=== PATIENT | female | born 1955 | race African-American/Black ===

== ENCOUNTER → 2019-09-21 | Outpatient (CLI) | payer BC, OTHER ==
[~2019-09-21] MED LIST: ADULT LOW DOSE81 MG PO; ALLOPURINOL 10100 M1 PO; COREG PO; CRESTOR10 MG PO; DIOVAN320 MG PO; FERREX-150 PLU150 MG PO; FOLIC ACID1 MG PO; HUMALOG MI100 UNIT/6 SQ; HYDRALAZINE 5050 MG PO; IMURAN 50MG TAB50 M1 PO; INSULIN NPL; KLOR-CON 1010 MEQ PO; LASIX 40 MG TAB40 M1 PO; LEVOTHYROXINE0.05 MG PO; LISPRO; METHOTREXATE 22.5 MG PO; MULTIPLE VITAM1 EAC3 PO; PREDNISONE 10 M10 M1 PO; PRILOSEC 10MG C10 M1 PO; PROTONIX40 M2 PO; SULFASALAZINE500 M4 PO; TOPROL XL100 MG PO; VICODIN 5-5001 EACH PO; VITAMIN B 6 PO; ZAROXOLYN 2.5M2.5 M1 PO; ZOFRAN ODT4 MG PO
--- NOTE | 2019-09-21 14:00 | 2DMMODE ---
[place] [address] 2 D/M-MODE ECHOCARDIOGRAM Name: ROSELIA KIMBALL Room: [facility]#: [id number] Admission: 09/21/19 Attend Phys: Hien Sahu, Discharge: Date of : 55 Date of Service: 09/21/19 1359 Report #: [id number] THIS REPORT FOR: //name// APPROVED REPORT Study performed: 09/21/2019 13:04:44 EXAM: Comprehensive 2D, Doppler, and color-flow Echocardiogram Patient Location: Out-Patient BSA: 2.67 HR: 68 bpm BP: 192/80 mmHg Other Information Study Quality: Good Indications Congestive Heart Failure 2D Dimensions IVSd: 11.85 (7-11mm) LVOT Diam: 20.42 (18-24mm) LVDd: 49.05 mm PWd: 11.60 (7-11mm) Ascending Ao: 28.43 (22-36mm) LVDs: 28.71 (25-40mm) Aortic Root: 28.94 mm Volumes Left Atrial Volume (Systole) LA ESV Index: 25.70 mL/m2 Aortic Valve AoV Peak Marin.: 2.07 m/s AO Peak Gr.: 17.13 mmHg LVOT Max P.52 mmHg AO Mean Gr.: 9.04 mmHg LVOT Mean P.51 mmHg LVOT Max V: 1.37 m/s AO V2 VTI: 48.22 cm LVOT Mean V: 0.86 m/s KEI (VTI): 2.20 cm2 LVOT V1 VTI: 32.42 cm Mitral Valve E/A Ratio: 1.24 MV Decel. Time: 198.91 ms MV E Max Marin.: 1.21 m/s MV PHT: 57.68 ms MVA (PHT): 3.81 cm2 [place] [address] 2 D/M-MODE ECHOCARDIOGRAM Name: ROSELIA KIMBALL Room: [facility]#: [id number] Admission: 09/21/19 Attend Phys: Hien Sahu, Discharge: Date of : 55 Date of Service: 09/21/19 1359 Report #: [id number] TDI E/Lateral E': 11.00 E/Medial E': 10.08 Medial E' Marin.: 0.12 m/s Lateral E' Marin.: 0.11 m/s Pulmonary Valve PV Peak Marin.: 1.52 m/s PV Peak Gr.: 9.30 mmHg Tricuspid Valve RAP Estimate: 10.00 mmHg TR Peak Gr.: 43.92 mmHg RVSP: 53.92 mmHg PA Pressure: 53.92 mmHg Left Ventricle The left ventricle is normal size. There is normal LV segmental wall motion. There is normal left ventricular wall thickness. Left ventricular systolic function is normal. The left ventricular ejection fraction is within the normal range. LVEF is 55%. The left ventricular diastolic function is normal. Right Ventricle The right ventricle is normal size. The right ventricular systolic function is normal. Atria The left atrium size is normal. The right atrium size is normal. Aortic Valve Mild aortic valve sclerosis. No aortic regurgitation is present. There is no aortic valvular stenosis. Mitral Valve The mitral valve is normal in structure. There is no mitral valve regurgitation noted. No evidence of mitral valve stenosis. Tricuspid Valve The tricuspid valve is normal in structure. Moderate tricuspid regurgitation. Moderate pulmonary hypertension. Pulmonic Valve The pulmonary valve is normal in structure. There is no pulmonic valvular regurgitation. [place] [address] 2 D/M-MODE ECHOCARDIOGRAM Name: ROSELIA KIMBALL Room: [facility]#: [id number] Admission: 09/21/19 Attend Phys: Hien Sahu, Discharge: Date of : 55 Date of Service: 09/21/19 1359 Report #: [id number] The aortic root is normal in size. IVC is dilated and collapses >50% with inspiration. Pericardium Mild-Moderate circumferential pericardial effusion without evidence for tamponade <Conclusion> The left ventricle is normal size. There is normal left ventricular wall thickness. Left ventricular systolic function is normal. The left ventricular ejection fraction is within the normal range. LVEF is 55%. The left ventricular diastolic function is normal. The right ventricle is normal size. The left atrium size is normal. Mild aortic valve sclerosis. No aortic regurgitation is present. There is no aortic valvular stenosis. The mitral valve is normal in structure. The tricuspid valve is normal in structure. Moderate tricuspid regurgitation. Moderate pulmonary hypertension. IVC is dilated and collapses >50% with inspiration. Mild-Moderate circumferential pericardial effusion without evidence for tamponade There is normal LV segmental wall motion. <ELECTRONICALLY SIGNED> By: Curtis Ordaz MD, FACC 09/21/19 1359 1359 1359 Curtis Ordaz MD, FACC /INF
== END ==
LOC: M.CRD 12:55
DX: I08.2 Rheumatic disorders of both aortic and tricuspid valves (principal); I13.0 Hypertensive heart and chronic kidney disease with heart failure and stage 1 through stage 4 chronic kidney disease, or unspecified chronic kidney disease; I50.32 Chronic diastolic (congestive) heart failure; E11.22 Type 2 diabetes mellitus with diabetic chronic kidney disease; I27.20 Pulmonary hypertension, unspecified

== ENCOUNTER 2019-10-11 18:06 | Inpatient (IN) | payer BC, OTHER ==
[~2019-10-11] VITALS: Ht 167.6 cm; Wt 175.1 kg
--- NOTE | ~2019-10-11 | EKG ---
[place] [address] ELECTROCARDIOGRAM REPORT Name: ROSELIA KIMBALL Room: [address] ADM IN .R.#: [id number] Admission: 10/11/19 Attend Phys: Hunter Dahl, Discharge: Date of : 55 Date of Service: 10/28/19 0954 Report #: [id number] THIS REPORT FOR: cc: Gabe Arellano MD, Matthew S. MD Epiphany, Epiphany MD ~ THIS REPORT FOR: //name// [facility] Test Date: 2019-10-28 Test Time: 09:54:48 Pat Name: ROSELIA KIMBALL Department: Room: [address] Gender: F Slate Worker: EMEKA : 1955 Requested By: Humberto Dumont Order Number: [id number] Reading MD: Measurements Intervals [place] Rate: 63 P: 27 DC: 154 QRS: -47 QRSD: 128 T: 17 QT: 579 QTc: 593 Interpretive Statements Sinus rhythm Nonspecific IVCD with LAD Borderline T abnormalities, diffuse leads Compared to ECG 10/26/2019 09:47:39 Atrial flutter no longer present Myocardial infarct finding no longer present Prolonged QT interval no longer present T-wave abnormality still present [email or web address] By: 3 3 Epiphany EpiphMD adalberto /TRESA
--- NOTE | ~2019-10-11 | EKG ---
[place] [address] ELECTROCARDIOGRAM REPORT Name: ROSELIA KIMBALL Room: [address] ADM IN M.R.#: [id number] Admission: 10/11/19 Attend Phys: Hunter Dahl, Discharge: Date of : 55 Date of Service: 10/26/19 0947 Report #: [id number] THIS REPORT FOR: cc: Gabe Arellano MD, Matthew S. MD Epiphany, Epiphany MD ~ THIS REPORT FOR: //name// [facility] Test Date: 2019-10-26 Test Time: 09:47:39 Pat Name: ROSELIA KIMBALL Department: Room: [address] Gender: F Web Development Manager: EMEKA : 1955 Requested By: Humberto Dumont Order Number: [id number] Reading MD: Measurements Intervals [place] Rate: 126 P: 64 [place]: 185 QRS: -37 QRSD: 112 T: 118 QT: 419 QTc: 607 Interpretive Statements Sinus tachycardia Borderline IVCD with LAD Low voltage, precordial leads Consider anterior infarct Nonspecific T abnormalities, lateral leads Prolonged QT interval Compared to ECG 10/20/2019 08:26:24 Low QRS voltage now present T-wave abnormality now present Prolonged QT interval now present Atrial flutter no longer present Right bundle-branch block no longer present Myocardial infarct finding still present [email or web address] By: 6 6 Rowdy Reno MD /EPI
[~2019-10-11 18:06] MED LIST changes: +CARVEDILOL12.5 MG PO; -COREG PO; -LEVOTHYROXINE0.05 MG PO; +METOLAZONE 2.52.5 MG PO; -MULTIPLE VITAM1 EAC3 PO; +MULTIPLE VITAM1 EACH PO; +OMEPRAZOLE10 MG PO; -PRILOSEC 10MG C10 M1 PO; +SYNTHROID50 MCG PO; -ZAROXOLYN 2.5M2.5 M1 PO
[2019-10-11 18:10] VITALS: BP 167/55
[2019-10-11 19:28] LABS: HEMATOCRIT 31.6 % (37.0-47.0); HEMOGLOBIN 10.1 gm/dL (12.0-15.0); MCH 27.9 pg (26.0-34.0); MPV 9.3 fl. (7.2-11.1); NUCLEATED RBCS 0 /100WBC; PLATELET COUNT* 286 thou/uL (150-400); RBC 3.63 mil/uL (4.20-5.00); RDW-CV 17.9 % (10.5-14.5); WBC 14.4 thou/uL (4.0-11.0)
[2019-10-11 19:39] LABS: BE -3.9 mmol/L (-2 to +3); PCO2 46.9 mmHg (35.0-45.0)
[2019-10-11 19:41] LABS: PO2 177.1 mmHg (75.0-100.0)
[2019-10-11 19:45] LABS: ABSOLUTE LYMPHOCYTES 0.7 thou/uL (0.8-5.3); ABSOLUTE MONOCYTES 0.7 thou/uL (0.0-1.2); PLATELET ESTIMATE ADEQUATE
[2019-10-11 19:50] VITALS: BP 133/54
[2019-10-11 19:53] LABS: CALCIUM 8.9 mg/dL (8.5-10.1); CREATININE 4.7 mg/dL (0.6-1.3); POTASSIUM 5.1 mmol/L (3.5-5.1)
[2019-10-11 20:04] LABS: ALBUMIN 3.3 g/dL (3.4-5.0); TOTAL BILIRUBIN 0.4 mg/dL (<0.1-1.0); TOTAL PROTEIN 8.3 g/dL (6.4-8.2)
[2019-10-11 20:17] VITALS: BP 144/84
[2019-10-11 20:57] LABS: APTT 23.7 Seconds (25.0-31.3); INR 1.1; PROTIME 11.5 Seconds (9.20-11.50)
[2019-10-11] MEDS ORDERED: LIPITOR 20 MG T20 M1 PO (21:35)
[2019-10-11] MEDS ORDERED: ASA81BEC PO (21:36)
[2019-10-11] MEDS ORDERED: CALCITRIOL0.25 MCG PO (21:39)
[2019-10-11] MEDS ORDERED: KLOR-CON 1010 MEQ PO (21:41)
[2019-10-11] MEDS ORDERED: FEBUXOSTAT40 MG PO (21:42)
[2019-10-11] MEDS ORDERED: HYDRALAZINE 5050 MG PO (21:43)
[2019-10-11] MEDS ORDERED: ADALAT CC60 MG PO (21:45)
[2019-10-11 22:01] VITALS: BP 144/69
[2019-10-11 23:00] VITALS: BP 163/83
[2019-10-12] VITALS (36 sets, daily range): BP systolic 117–158; BP diastolic 41–125
[2019-10-12 02:49] LABS: HEMATOCRIT 30.3 % (37.0-47.0); HEMOGLOBIN 9.5 gm/dL (12.0-15.0); MCH 27.4 pg (26.0-34.0); MCHC 31.3 g/dL (28.0-37.0); MCV 87.7 fL (80.0-100.0); RBC 3.45 mil/uL (4.20-5.00); RDW-CV 17.3 % (10.5-14.5); WBC 11.8 thou/uL (4.0-11.0)
[2019-10-12 03:04] LABS: CALCIUM 9.5 mg/dL (8.5-10.1); CREATININE 4.8 mg/dL (0.6-1.3); MAGNESIUM 2.1 mg/dL (1.8-2.4); PHOSPHORUS* 5.8 mg/dL (2.5-4.9); POTASSIUM 5.3 mmol/L (3.5-5.1)
--- NOTE | 2019-10-12 10:40 | EKG ---
[place] [address] ELECTROCARDIOGRAM REPORT Name: ROSELIA KIMBALL Room: [address] ADM IN M.R.#: [id number] Admission: 10/11/19 Attend Phys: Hunter Dahl MD Discharge: Date of : 55 Report #: [id number] THIS REPORT FOR: //name// [facility] ED Test Date: 2019-10-11 Test Time: 18:11:47 Pat Name: ROSELIA KIMBALL Department: Room: [facility] Gender: F Sales Order Coordinator: : 1955 Requested By: José Guidry Order Number: [id number] MD: Humberto Dumont Measurements Intervals [place] Rate: 68 P: 40 SC: 129 QRS: -24 QRSD: 111 T: 50 QT: 368 QTc: 392 Interpretive Statements Sinus rhythm t wave abnormality Borderline left axis deviation Abnormal R-wave progression, late transition Compared to ECG 03/08/2010 01:24:02 no change Electronically Signed On 10-12-2019 10:40:14 LOAN CLERK by Humberto Dumont [email or web address] <ELECTRONICALLY SIGNED> By: Humberto Dumont MD, [facility] 10/12/19 1040 181 10 Humberto Dumont MD, [facility] /EPI
--- NOTE | 2019-10-12 15:40 | 2DMMODE ---
[address] [place] [address] 2 D/M-MODE ECHOCARDIOGRAM Name: REHANAROSELIA NATALYA Room: [facility] ADM IN R#: [id number] Admission: 10/11/19 Attend Phys: Hunter Dahl, Discharge: Date of : 55 Date of Service: 10/12/19 1539 Report #: [id number] THIS REPORT FOR: //name// APPROVED REPORT Study performed: 10/12/2019 14:28:11 EXAM: Limited 2D Echocardiogram Patient Location: In-Patient Room #: [facility] Status: routine BSA: 2.60 HR: 67 bpm BP: 143/67 mmHg Rhythm: NSR Other Information Study Quality: Good Indications Pericardial Effusion Left Ventricle The left ventricle is normal size. There is normal left ventricular wall thickness. The left ventricular systolic function is normal. The left ventricular ejection fraction is within the normal range. LVEF is 55-60%. Right Ventricle The right ventricle is normal size. The right ventricular systolic function is normal. Atria The left atrium size is normal. The right atrium size is normal. Aortic Valve Mild aortic valve sclerosis. Mitral Valve The mitral valve is normal in structure. Tricuspid Valve The tricuspid valve is normal in structure. Pulmonic Valve [facility] [place] [address] 2 D/M-MODE ECHOCARDIOGRAM Name: ROSELIA KIMBALL Room: [address] IN M.R.#: [id number] Admission: 10/11/19 Attend Phys: Hunter Dahl, Discharge: Date of : 55 Date of Service: 10/12/199 Report #: [id number] The pulmonary valve is normal in structure. Great Vessels The aortic root is normal in size. IVC is normal in size and collapses >50% with inspiration. Pericardium Moderate circumferential pericardial effusion. <Conclusion> LVEF is 55-60%. Moderate circumferential pericardial effusion. <ELECTRONICALLY SIGNED> By: Humberto Dumont MD, FACC 10/12/19 1539 1539 38 Humberto Dumont MD, FACC /INF
[2019-10-12 16:01] LABS: BE -5.9 mmol/L (-2 to +3); PCO2 40.4 mmHg (35.0-45.0); PO2 81.7 mmHg (75.0-100.0); pH 7.311 (7.340-7.450)
[2019-10-12 17:29] LABS: URINE BILIRUBIN 1+ (Negative); URINE BLOOD 3+ (Negative); URINE CLARITY CLEAR; URINE GLUCOSE-RANDOM NEGATIVE (Negative); URINE KETONES NEGATIVE (Negative); URINE LEUKOCYTES 2+ (Negative); URINE NITRITE NEGATIVE (Negative); URINE PROTEIN 2+ (Negative); URINE SPECIFIC GRAVITY 1.025 (1.005-1.030); URINE UROBILINOGEN 0.2 E.U./dl (0.2-1.0)
[2019-10-12 17:30] LABS: ICTOTEST (BILI CONFIRMATORY) Negative (Negative); URINE COLOR DARK YELLOW
[2019-10-12 17:31] LABS: CASTS None Seen /LPF (None Seen); SQUAMOUS >10 Many /LPF (0-3); URINE RBC >20 Many /HPF (0-2); URINE WBC >25 Many /HPF (0-5)
[2019-10-12 17:32] LABS: AMORPHOUS URATES Few /LPF (None Seen)
[2019-10-13] VITALS (22 sets, daily range): BP systolic 90–158; BP diastolic 51–86
[2019-10-13 04:29] LABS: ALBUMIN 2.9 g/dL (3.4-5.0); CALCIUM 8.9 mg/dL (8.5-10.1); CREATININE 5.1 mg/dL (0.6-1.3); PHOSPHORUS* 5.5 mg/dL (2.5-4.9); POTASSIUM 5.5 mmol/L (3.5-5.1)
--- NOTE | 2019-10-13 08:42 | CON ---
[address] [address] CONSULTATION Name: ROSELIA KIMBALL Room: [address] IN .R.#: [id number] Admission: 10/11/19 Attend Phys: Hunter Dahl MD Discharge: Date of : 55 Report #: [id number] THIS REPORT FOR: //name// CC: Hunter Arellano DATE OF SERVICE: 10/12/2019 CARDIOLOGY CONSULTATION HISTORY OF PRESENT ILLNESS: The patient is a 64-year-old white female who I was asked to see in the hospital today after she complained of being short of breath. The patient has been followed by my partner, Dr. Stone. She is morbidly obese, being 5 feet 6 inches and weighing 360 pounds. She does note she used to weigh over 400 pounds. She is not very active at this time. She called the ambulance yesterday because she was short of breath, felt diaphoretic, was coughing. She has had some edema. She was brought to the hospital by ambulance. She did note some chest discomfort when she took deep breath. She has had no leg pain. Denied palpitation or syncope. PAST MEDICAL HISTORY: Significant for hysterectomy, hypertension and diabetes. MEDICATIONS: On admission consisted of carvedilol, omeprazole, Crestor, Imuran, Zaroxolyn, insulin, allopurinol, Lasix. ALLERGIES: SHE HAS AN ALLERGY TO MORPHINE. FAMILY HISTORY: Her father had COPD. SOCIAL HISTORY: She is . She and her live here in [place]. She quit smoking years ago. No alcohol abuse. REVIEW OF SYSTEMS: She has had no history of stroke. She does not snore at night. No history of liver disease. She has chronic kidney disease and she has been followed by spark plug assembler. No cancer. No chronic skin condition. No psychiatric illness. PHYSICAL EXAMINATION: GENERAL: Revealed a middle-aged female lying in bed. She appeared in no acute distress. VITAL SIGNS: She had a blood pressure 140/70, pulse 60. She is afebrile. HEENT: She was anicteric. Conjunctivae pink. Mucous membranes are moist. NECK: Veins cannot be assessed due to obesity. CHEST: Clear to auscultation. CARDIOVASCULAR: Regular rate and rhythm without murmur or rub. ABDOMEN: Obese, [place] [address] CONSULTATION Name: ROSELIA KIMBALL Room: [address]#: [id number] Admission: 10/11/19 Attend Phys: Hunter Dahl MD Discharge: Date of : 55 Report #: [id number] EXTREMITIES: Had trace edema. SKIN: Cool and dry. NEUROLOGIC: Nonfocal. RADIOLOGICAL DATA: Her ECG on admission. She appeared to be in a sinus rhythm, no significant ST or T-wave changes were noted. Her workup, she had a portable chest x-ray in the Emergency Room last night that showed cardiomegaly and large cardiac silhouette suggesting effusion. Pulmonary vasculature was normal. Some atelectasis. She had a venous duplex scan of her legs that showed no evidence of DVT. LABORATORY WORK: Sodium 135, BUN 65, creatinine is 4.8, potassium 5.3, glucose 166. Liver function studies were normal. Albumin 3.3. Troponin 0.06. BNP 1969. Her white blood cell count 11.8, hemoglobin 9.5, it was actually 7.7 back in 2009. IMPRESSION AND RECOMMENDATIONS: 1. Shortness of breath. Reason unclear. The patient did have an echocardiogram done in August last month that showed a moderate sized pericardial effusion with an ejection fraction of 55%. I would recommend a repeat echocardiogram. 2. Morbid obesity. 3. Chronic kidney disease. The patient might require dialysis. 4. Anemia. No history of bleeding. <ELECTRONICALLY SIGNED> By: Humberto Dumont MD, FACC 10/13/19 0842 1441 [email or web address] Dumont MD, FACC /nt
[2019-10-13 09:20] LABS: BE -2.8 mmol/L (-2 to +3); PCO2 44.9 mmHg (35.0-45.0)
[2019-10-14] VITALS (16 sets, daily range): BP systolic 110–145; BP diastolic 38–87
[2019-10-14 05:52] LABS: % SATURATION 17 % (20-39); IRON 31 ug/dL (50-175)
[2019-10-14 05:53] LABS: CALCIUM 8.3 mg/dL (8.5-10.1); CREATININE 5.3 mg/dL (0.6-1.3); PHOSPHORUS* 5.5 mg/dL (2.5-4.9)
[2019-10-14 06:12] LABS: POTASSIUM 5.5 mmol/L (3.5-5.1)
[2019-10-14 06:43] LABS: CALCIUM 8.9 mg/dL (8.5-10.1); CREATININE 5.4 mg/dL (0.6-1.3); PHOSPHORUS* 5.4 mg/dL (2.5-4.9)
[2019-10-15 00:19] VITALS: BP 139/85
[2019-10-15 04:15] VITALS: BP 136/83
[2019-10-15 05:12] LABS: CALCIUM 8.8 mg/dL (8.5-10.1); CREATININE 4.5 mg/dL (0.6-1.3); POTASSIUM 4.6 mmol/L (3.5-5.1)
[2019-10-15 12:00] VITALS: BP 115/74
[2019-10-15 16:00] VITALS: BP 119/84
[2019-10-15 20:00] VITALS: BP 131/79
[2019-10-15 23:44] VITALS: BP 125/84
[2019-10-16] VITALS (20 sets, daily range): BP systolic 101–138; BP diastolic 63–85
[2019-10-16 02:10] LABS: HEPATITIS B SURFACE AG Negative (Negative)
[2019-10-16 05:25] LABS: CALCIUM 8.5 mg/dL (8.5-10.1); CREATININE 3.9 mg/dL (0.6-1.3)
--- NOTE | 2019-10-16 14:36 | EKG ---
[place] [address] ELECTROCARDIOGRAM REPORT Name: ROSELIA KIMBALL Room: [address] ADM IN .R.#: [id number] Admission: 10/11/19 Attend Phys: Hunter Dahl MD Discharge: Date of : 55 Report #: [id number] THIS REPORT FOR: //name// [facility] Test Date: 2019-10-16 Test Time: 12:13:44 Pat Name: ROSELIA KIMBALL Department: Room: [facility] Gender: F Forklift Operator: : 1955 Requested By: Jarrett John Order Number: [id number] Reading MD: Humberto Dumont Measurements Intervals [place] Rate: 129 P: 253 [place]: 117 QRS: -24 QRSD: 120 T: 97 QT: 348 QTc: 510 Interpretive Statements Sinus or ectopic atrial tachycardia nonspecific Intraventricular conduction defect nonspecific st changes noted Compared to ECG 10/11/2019 18:11:47 Sinus rhythm no longer present Electronically Signed On 10-16-2019 14:35:38 CHEMI[employer] by Humberto Dumont [email or web address] <ELECTRONICALLY SIGNED> By: Humberto Dumont MD, [facility] 10/16/19 3712 1213 1213 Humberto Dumont MD, [facility] /EPI
[2019-10-16 14:41] LABS: BE -6.7 mmol/L (-2 to +3); PCO2 43.1 mmHg (35.0-45.0)
[2019-10-16 14:43] LABS: PO2 217.6 mmHg (75.0-100.0); pH 7.278 (7.340-7.450)
[2019-10-16 15:26] LABS: CALCIUM 8.1 mg/dL (8.5-10.1); CREATININE 3.1 mg/dL (0.6-1.3); MAGNESIUM 1.9 mg/dL (1.8-2.4); POTASSIUM 4.7 mmol/L (3.5-5.1)
--- NOTE | 2019-10-16 15:56 | EKG ---
[place] [address] ELECTROCARDIOGRAM REPORT Name: ROSELIA KIMBALL Room: [address] ADM IN M.R.#: [id number] Admission: 10/11/19 Attend Phys: Hunter Dahl MD Discharge: Date of : 55 Report #: [id number] THIS REPORT FOR: //name// [facility] Test Date: 2019-10-16 Test Time: 14:34:37 Pat Name: ROSELIA KIMBALL Department: Room: [address] Gender: F Auto Parts Delivery Driver: : 1955 Requested By: Janet Haynes Order Number: [id number] Reading MD: Humberto Dumont Measurements Intervals [place] Rate: 134 P: 240 [place]: 103 QRS: -33 QRSD: 118 T: 109 QT: 318 QTc: 475 Interpretive Statements Sinus or ectopic atrial tachycardia Nonspecific intraventricular conduction delay Inferior infarct, old Lateral leads are also involved Compared to ECG 10/16/2019 12:13:44 no change Electronically Signed On 10-16-2019 15:55:35 MANAGER SOUND by Humberto Dumont [email or web address] <ELECTRONICALLY SIGNED> By: Humberto Dumont MD, [facility] 10/16/19 1555 1434 1434 Humberto Dumont MD, [facility] /EPI
[2019-10-16 17:31] LABS: BF RBC 1976472 /mm3; TOTAL CELL COUNT 2595 /mm3
--- NOTE | 2019-10-16 17:42 | 2DMMODE ---
[place] [address] 2 D/M-MODE ECHOCARDIOGRAM Name: ROSELIA KIMBALL NATALYA Room: 002-[facility] IN .R.#: [id number] Admission: 10/11/19 Attend Phys: Hunter Dahl, Discharge: Date of : 55 Date of Service: 10/16/19 1741 Report #: [id number] THIS REPORT FOR: //name// ADDENDUM APPROVED REPORT Study performed: 10/16/2019 15:09:31 EXAM: Limited 2D Echocardiogram Patient Location: In-Patient Room #: 002 Status: routine BSA: 2.60 HR: 133 bpm BP: 91/64 mmHg Other Information Study Quality: Fair Indications Pericardial Effusion Left Ventricle The left ventricle is normal size. There is normal LV segmental wall motion. Mild concentric left ventricular hypertrophy. The left ventricular systolic function is normal. The left ventricular ejection fraction is within the normal range. LVEF is 60-65%. Right Ventricle The right ventricle is normal size. The right ventricular systolic function is normal. Atria The left atrium size is normal. The right atrium size is normal. Aortic Valve Mild aortic valve sclerosis. Mitral Valve The mitral valve is normal in structure. Tricuspid Valve The tricuspid valve is normal in structure. Pulmonic Valve The pulmonary valve is normal in structure. [address] [address] 2 D/M-MODE ECHOCARDIOGRAM Name: ROSELIA KIMBALL Room: [facility] IN M.R.#: [id number] Admission: 10/11/19 Attend Phys: Hunter Dahl, Discharge: Date of : 55 Date of Service: 10/16/191740 Report #: [id number] Great Vessels The aortic root is normal in size. IVC is normal in size. Pericardium large circumferential pericardial effusion. Findings are consistent with pericardial tamponade. <Conclusion> Mild concentric left ventricular hypertrophy. LVEF is 60-65%. Mild aortic valve sclerosis. large circumferential pericardial effusion. Findings are consistent with pericardial tamponade. After percutaneous pericardiocentesis from the apical approach, the size of the pericardial effusion was noted to have decreased. Approximately 700 cc of bloody fluid was removed and sent to the lab for analysis. Time spent in critical care time was from 4:00 pm til 5:30 pm for a total time of 1 hour and 30 minutes. <ELECTRONICALLY SIGNED> By: Humberto Dumont MD, [facility] 10/16/191740 40 40 Humberto Dumont MD, FACC /INF
[2019-10-16 17:56] LABS: BF LYMPHOCYTES 20 %; BF MONOCYTES 17 %; BF POLYS 63 %
[2019-10-16 18:00] LABS: TOTAL VOLUME 450 ml
[2019-10-16 18:01] LABS: CLARITY CLOUDY
[2019-10-16 18:02] LABS: SOURCE CHEST
[2019-10-16 18:48] LABS: HEMATOCRIT 30.9 % (37.0-47.0); HEMOGLOBIN 9.7 gm/dL (12.0-15.0)
[2019-10-16 18:55] LABS: CALCIUM 8.2 mg/dL (8.5-10.1); CREATININE 3.4 mg/dL (0.6-1.3); MAGNESIUM 1.7 mg/dL (1.8-2.4); POTASSIUM 4.4 mmol/L (3.5-5.1)
[2019-10-16 19:53] LABS: SOURCE CHEST
[2019-10-17] VITALS (86 sets, daily range): BP systolic 48–197; BP diastolic 20–93
[2019-10-17 00:56] LABS: ABSOLUTE LYMPHOCYTES 1.2 thou/uL (0.8-5.3); ABSOLUTE MONOCYTES 1.7 thou/uL (0.0-1.2); ABSOLUTE NEUTROPHILS 21.4 thou/uL (1.6-8.1); BASOPHILS 0.1 %; EOSINOPHILS 0.1 %; HEMATOCRIT 28.5 % (37.0-47.0); LYMPHOCYTES 4.9 %; MCH 27.5 pg (26.0-34.0); MCHC 31.5 g/dL (28.0-37.0); MCV 87.3 fL (80.0-100.0); MONOCYTES 6.9 %; MPV 9.2 fl. (7.2-11.1); NUCLEATED RBCS 0 /100WBC; PLATELET COUNT* 234 thou/uL (150-400); RBC 3.26 mil/uL (4.20-5.00); RDW-CV 17.4 % (10.5-14.5); WBC 24.3 thou/uL (4.0-11.0)
[2019-10-17 01:01] LABS: CALCIUM 8.1 mg/dL (8.5-10.1); CREATININE 3.6 mg/dL (0.6-1.3); MAGNESIUM 1.7 mg/dL (1.8-2.4); POTASSIUM 4.6 mmol/L (3.5-5.1)
[2019-10-17 01:26] LABS: BE -2.9 mmol/L (-2 to +3); PO2 92.5 mmHg (75.0-100.0)
[2019-10-17 01:28] LABS: PCO2 50.3 mmHg (35.0-45.0); pH 7.292 (7.340-7.450)
[2019-10-17 10:08] LABS: BE 0.5 mmol/L (-2 to +3); PCO2 45.3 mmHg (35.0-45.0); PO2 78.4 mmHg (75.0-100.0); pH 7.376 (7.340-7.450)
[2019-10-18] VITALS (75 sets, daily range): BP systolic 73–150; BP diastolic 40–95
[2019-10-18 05:32] LABS: ABSOLUTE EOSINOPHILS 0.6 thou/uL (0.0-0.7); ABSOLUTE LYMPHOCYTES 1.7 thou/uL (0.8-5.3); ABSOLUTE MONOCYTES 1.2 thou/uL (0.0-1.2); ABSOLUTE NEUTROPHILS 16.5 thou/uL (1.6-8.1); BASOPHILS 0.1 %; EOSINOPHILS 3.1 %; HEMATOCRIT 26.9 % (37.0-47.0); HEMOGLOBIN 8.7 gm/dL (12.0-15.0); LYMPHOCYTES 8.3 %; MCH 27.3 pg (26.0-34.0); MCHC 32.3 g/dL (28.0-37.0); MCV 84.7 fL (80.0-100.0); MONOCYTES 6.1 %; MPV 9.2 fl. (7.2-11.1); NUCLEATED RBCS 0 /100WBC; PLATELET COUNT* 209 thou/uL (150-400); POLYS 82.4 %; RBC 3.18 mil/uL (4.20-5.00); RDW-CV 17.5 % (10.5-14.5)
[2019-10-18 05:56] LABS: CALCIUM 8.2 mg/dL (8.5-10.1)
[2019-10-18 05:59] LABS: CREATININE 4.6 mg/dL (0.6-1.3)
[2019-10-18 08:38] LABS: BE -1.6 mmol/L (-2 to +3); PCO2 41.5 mmHg (35.0-45.0); PO2 72.6 mmHg (75.0-100.0); pH 7.372 (7.340-7.450)
--- NOTE | 2019-10-18 09:15 | CON ---
[address] [address] CONSULTATION Name: REHANAROSELIASHELLEY RASHEEDISE Room: [address] IN M.R.#: [id number] Admission: 10/11/19 Attend Phys: Hunter Dahl MD Discharge: Date of : 55 Report #: [id number] THIS REPORT FOR: //name// CC: Hunter Dahl Gabe Arellano DATE OF SERVICE: 10/17/2019 INFECTIOUS DISEASE CONSULTATION ATTENDING PHYSICIAN: Hunter Dahl MD REASON FOR EVALUATION: Cardiac effusion, exclude Mycobacterium tuberculosis. HISTORY OF PRESENT ILLNESS: Chart reviewed, patient examined. This is a 64-year-old with underlying COPD, who was admitted on 10/11/2019 with respiratory distress, subsequent failure, did require BiPAP, aggressive resuscitation. She was actually shown to have improvement, it clearly has a combination as well as pulmonary edema. She was found to have acute on chronic renal failure, felt this was likely to be chronic, scheduled to undergo placement of a dialysis graft subsequently that developed a cardiac arrest. She was resuscitated and was found to have evidence of tamponade. She was emergently taken to the Property Maintenance Supervisor, underwent evacuation of roughly 650 mL. Drain remains in place, described as serosanguineous. It is not clear if she did have any fevers or chills. There was a concern about possible MTB. At this point, she is sedated, maintained on the vent. ALLERGIES: LISTED TO MORPHINE. MEDICATIONS: Include fentanyl, pantoprazole, Zosyn, propofol, norepinephrine. PAST MEDICAL HISTORY: As noted above, COPD, history of hypertension, diabetes mellitus, chronic renal insufficiency, previous hysterectomy. SOCIAL HISTORY: Nonsmoker, no ethanol, no illicit drug use. FAMILY HISTORY: Noncontributory. REVIEW OF SYSTEMS: Unobtainable. PHYSICAL EXAMINATION: GENERAL: She is critically ill. She is lying supine, she is intubated. She is obese. VITAL SIGNS: Temperature 97.4, pulse 119, respirations 15, blood pressure 116/80. SKIN: Warm, dry, [place] [address] CONSULTATION Name: REHANAROSELIA Room: [address]#: [id number] Admission: 10/11/19 Attend Phys: Hunter Dahl MD Discharge: Date of : 55 Report #: [id number] HEENT: Endotracheal tube in place. NECK: Appears to be supple. LUNGS: Few scattered coarse breath sounds. HEART: Regular, tachycardic. ABDOMEN: Has a drainage catheter, left upper quadrant. It is generally soft. There are no peritoneal signs. GENITOURINARY: Deferred. RECTAL: Deferred. LABORATORY DATA: Blood cultures sterile thus far. Recent ABG: pH 7.292, pCO2 of 50.3, pO2 of 92.5, FiO2 of 90%. Electrolytes: Sodium 134, potassium 4.6, chloride 98, bicarbonate is 26, anion gap of 10, BUN and creatinine of 46 and 3.6. CBC: White count of 24.3, hemoglobin and hematocrit 9.0 and 28.5, platelets of 234. Chest x-ray, left basilar opacification compatible with atelectasis and consolidation. ASSESSMENT AND PLAN: Cardiac effusion, complicated by tamponade. The patient has extensive medical history. At this point, I do not appreciate any clear evidence or suggestive confounding information that would suggest Mycobacterium tuberculosis. We will send off TB spot. Continue typical antimicrobial therapy. At this point, she is at risk for additional complications as well ____ broad-spectrum therapy. <ELECTRONICALLY SIGNED> By: Frank Benitez MD 10/18/19 0915 0940 [id number] Benitez MD /nt
--- NOTE | 2019-10-18 16:21 | 2DMMODE ---
[facility] [address] [place] [address] 2 D/M-MODE ECHOCARDIOGRAM Name: REHANAROSELIA NATALYA Room: 002-P ADM IN .R#: [id number] Admission: 10/11/19 Attend Phys: Hunter Dahl, Discharge: Date of : 55 Date of Service: 10/18/19 1620 Report #: [id number] THIS REPORT FOR: //name// APPROVED REPORT Study performed: 10/17/2019 08:23:57 EXAM: Limited 2D Echocardiogram Patient Location: In-Patient Room #: [facility] Status: routine BSA: 2.60 HR: 126 bpm BP: 86/59 mmHg Other Information Study Quality: Adequate Indications Pericardial Effusion Left Ventricle The left ventricle is normal size. There is normal LV segmental wall motion. Mild concentric left ventricular hypertrophy. The left ventricular systolic function is normal. LVEF is 60-65%. Right Ventricle The right ventricle is normal size. The right ventricular systolic function is normal. Atria The left atrium size is normal. The right atrium size is normal. Aortic Valve Mild aortic valve sclerosis. Mitral Valve The mitral valve is normal in structure. Tricuspid Valve The tricuspid valve is normal in structure. Pulmonic Valve The pulmonary valve is normal in structure. [address] [place] [address] 2 D/M-MODE ECHOCARDIOGRAM Name: ROSELIA KIMBALL Room: [address] IN M.R.#: [id number] Admission: 10/11/19 Attend Phys: Hunter Dahl, Discharge: Date of : 55 Date of Service: 10/18/191619 Report #: [id number] Great Vessels The aortic root is normal in size. Pericardium Trace pericardial effusion. No echo indications of pericardial tamponade. <Conclusion> The left ventricle is normal size. Mild concentric left ventricular hypertrophy. The left ventricular systolic function is normal. LVEF is 60-65%. Mild aortic valve sclerosis. Trace pericardial effusion. No echo indications of pericardial tamponade. <ELECTRONICALLY SIGNED> By: William Stone MD, FACC 10/18/191619 19 19 William Stone MD, FACC /INF
[2019-10-19] VITALS (62 sets, daily range): BP systolic 74–169; BP diastolic 41–80
[2019-10-19 05:48] LABS: ABSOLUTE EOSINOPHILS 0.8 thou/uL (0.0-0.7); ABSOLUTE LYMPHOCYTES 1.6 thou/uL (0.8-5.3); ABSOLUTE MONOCYTES 1.3 thou/uL (0.0-1.2); ABSOLUTE NEUTROPHILS 15.9 thou/uL (1.6-8.1); BASOPHILS 0.1 %; HEMATOCRIT 27.3 % (37.0-47.0); HEMOGLOBIN 8.8 gm/dL (12.0-15.0); LYMPHOCYTES 8.1 %; MCH 27.6 pg (26.0-34.0); MCHC 32.4 g/dL (28.0-37.0); MCV 85.1 fL (80.0-100.0); MONOCYTES 6.8 %; MPV 9.5 fl. (7.2-11.1); NUCLEATED RBCS 0 /100WBC; PLATELET COUNT* 235 thou/uL (150-400); RBC 3.21 mil/uL (4.20-5.00); RDW-CV 17.8 % (10.5-14.5); WBC 19.7 thou/uL (4.0-11.0)
[2019-10-19 06:03] LABS: CALCIUM 8.2 mg/dL (8.5-10.1); CREATININE 5.2 mg/dL (0.6-1.3)
--- NOTE | 2019-10-19 10:10 | EKG ---
[place] [address] ELECTROCARDIOGRAM REPORT Name: ROSELIA KIMBALL Room: [address] ADM IN M.R.#: [id number] Admission: 10/11/19 Attend Phys: Hunter Dahl MD Discharge: Date of : 55 Report #: [id number] THIS REPORT FOR: //name// [facility] Test Date: 2019-10-18 Test Time: 07:39:01 Pat Name: ROSELIA KIMBALL Department: Room: [address] Gender: F Equity Director: LINNETTE : 1955 Requested By: William Stone Order Number: [id number] Hannah MD: Humberto Dumont Measurements Intervals [place] Rate: 126 P: 169 MA: 67 QRS: -58 QRSD: 170 T: 72 QT: 393 QTc: 570 Interpretive Statements Sinus or ectopic atrial tachycardia RBBB and LAFB Compared to ECG 10/16/2019 14:34:37 Left anterior fascicular block now present Right bundle-branch block now present Electronically Signed On 10-19-2019 10:10:12 SUPERVISING NURSE by Humberto Dumont [email or web address] <ELECTRONICALLY SIGNED> By: Humberto Dumont MD, [facility] 10/19/19 1010 0739 0739 Humberto Dumont MD, [facility] /EPI
[2019-10-19 13:08] LABS: BODY FLUID PROTEIN 5.5 g/dL (())
[2019-10-19 14:09] LABS: BODY FLUID PH 7.2 (Not Estab.)
[2019-10-19 15:29] LABS: BODY FLUID LDH ND
[2019-10-20] VITALS (67 sets, daily range): BP systolic 71–174; BP diastolic 40–84
[2019-10-20 05:12] LABS: ABSOLUTE EOSINOPHILS 0.5 thou/uL (0.0-0.7); ABSOLUTE LYMPHOCYTES 1.3 thou/uL (0.8-5.3); ABSOLUTE MONOCYTES 1.1 thou/uL (0.0-1.2); ABSOLUTE NEUTROPHILS 11.6 thou/uL (1.6-8.1); BASOPHILS 0.2 %; EOSINOPHILS 3.1 %; HEMOGLOBIN 8.5 gm/dL (12.0-15.0); LYMPHOCYTES 9.1 %; MCH 28.1 pg (26.0-34.0); MCHC 32.6 g/dL (28.0-37.0); MCV 86.1 fL (80.0-100.0); MONOCYTES 7.6 %; MPV 8.8 fl. (7.2-11.1); NUCLEATED RBCS 0 /100WBC; PLATELET COUNT* 222 thou/uL (150-400); RBC 3.02 mil/uL (4.20-5.00); RDW-CV 17.8 % (10.5-14.5); WBC 14.5 thou/uL (4.0-11.0)
[2019-10-20 05:32] LABS: ALBUMIN 2.1 g/dL (3.4-5.0); POTASSIUM 4.2 mmol/L (3.5-5.1); TOTAL BILIRUBIN 0.7 mg/dL (<0.1-1.0); TOTAL PROTEIN 6.1 g/dL (6.4-8.2)
[2019-10-20 05:33] LABS: CREATININE 4.2 mg/dL (0.6-1.3)
--- NOTE | 2019-10-20 12:55 | EKG ---
[place] [address] ELECTROCARDIOGRAM REPORT Name: ROSELIA KIMBALL Room: [address] ADM IN M.R.#: [id number] Admission: 10/11/19 Attend Phys: Hunter Dahl MD Discharge: Date of : 55 Report #: [id number] THIS REPORT FOR: //name// [facility] Test Date: 2019-10-20 Test Time: 08:26:24 Pat Name: ROSELIA KIMBALL Department: Room: [address] Gender: F Vice President Quality Assurance: : 1955 Requested By: William Stone Order Number: [id number] Hannah MD: Humberto Dumont Measurements Intervals [place] Rate: 123 P: 21 NE: 93 QRS: -58 QRSD: 161 T: 257 QT: 383 QTc: 548 Interpretive Statements atrial flutter Right bundle branch block Inferior infarct, old Compared to ECG 10/18/2019 07:39:01 no change Electronically Signed On 10-20-2019 12:54:58 HAND BOOKED FOLDER AND STITCHER by Humberto Dumont [email or web address] <ELECTRONICALLY SIGNED> By: Humberto Dumont MD, [facility] 10/20/19 1254 5 5 Humberto Dumont MD, [facility] /EPI
--- NOTE | 2019-10-20 16:29 | OP ---
[address] [address] OPERATIVE REPORT Name: REHANAROSELIA Room: [address] IN M.R.#: [id number] Admission: 10/11/19 Attend Phys: Hunter Dahl MD Discharge: Date of : 55 Report #: [id number] THIS REPORT FOR: //name// CC: Hunter Arellano DATE OF SERVICE: 10/16/2019 PREOPERATIVE DIAGNOSIS: End-stage renal disease. POSTOPERATIVE DIAGNOSIS: End-stage renal disease. PROCEDURE: Attempted right arm arteriovenous fistula formation between the brachial artery and the cephalic vein. COMPLICATIONS: The patient became bradycardic during initial dissection. She then became asystolic. CPR was initiated with ACLS protocol. She responded well and was intubated. Procedure was then aborted. The patient was taken to the ICU. SURGEON: Michael Salcedo MD. DEVELOPMENT CHEMIST: Oren Narvaez. ANESTHESIA: Local with sedation. INDICATIONS FOR PROCEDURE: The patient is a very pleasant 64-year-old -[place] female with end-stage renal disease, on dialysis. We have been asked to place an AV fistula. Informed consent was obtained from the patient with risks including but not limited to bleeding, infection, need for further surgery, pain, , heart attack, stroke, steal syndrome. The patient understood these risks and was agreeable to proceed. DESCRIPTION OF PROCEDURE: The patient was taken to the OR and placed in supine position. Sedation was initiated. Right arm was prepped and draped in usual sterile fashion. I infused 10 mL of 1% lidocaine just above the antecubital fossa. I created a transverse incision at this level. Sharp and blunt dissections were carried down to the cephalic vein. It had been accessed multiple times during this hospitalization and was not usable for fistula formation. I began to explore the wound for the basilic vein with plans to convert to brachiobasilic AV fistula. However, at this point in time, the patient became bradycardic, it was noted by anesthesia. We attempted to ventilate the patient. The patient became asystolic. I initiated CPR and ACLS was initiated, please see anesthesia documentation for further details. The patient responded well to these efforts and we were able to return a heartbeat. The patient was intubated in the OR. I closed her incision [place] [address] OPERATIVE REPORT Name: REHANAROSELIA Room: [address] IN [facility]#: [id number] Admission: 10/11/19 Attend Phys: Hunter Dahl MD Discharge: Date of : 55 Report #: [id number] and covered with a Mepilex border foam. The patient was taken intubated and sedated to the ICU in critical condition. <ELECTRONICALLY SIGNED> By: Shaheen Lutz DO 10/20/19 1629 1414 1446MD alexi Skelton
--- NOTE | 2019-10-20 17:07 | PATH ---
[address] [address] PATHOLOGY RPT PROCEDURE Name: ROSELIA KIMBALL Room: [address] IN [facility]#: [id number] Admission: 10/11/19 Date of : 55 Discharge: Report #: [id number] Path Case #: [id number] Note [facility] Accession Number: [id number] TESTS RESULT FLAG UNITS REF RANGE LAB Clinician Provided Cytology Information No. of containers..01 Other (Miscellaneous) Source: PLEURAL FLUID DIAGNOSIS: 02 PLEURAL FLUID INADEQUATE, INSUFFICIENT CELLS FOR STUDY. ESSENTIALLY BLOOD. Signed out by: You Norwood MD, Pathologist NPI- [id number] Performed by: Tabby Martinez, Corporate Travel Manager ([facility]) Gross description: 01 18 ML, DARK RED, BLOODY /LCS 10/19/2019 1626 Local FLAG LEGEND: L-Low Normal,H-High Normal,LL-Alert Low,HH-Alert High <-Panic Low,>-Panic High,A-Abnormal,AA-Critical Abnormal Performed at: [address] [place] [address] Gal Kearns MD, [address] [place] [phone] You Norwood MD, Specimen Comment: A courtesy copy of this report has been sent to [phone] Specimen Comment: [phone] Specimen Comment: [id number] Specimen Comment: Report sent to DR NG / DR ALSTON Performed at: [address], [place], [place] [id number] MD Gal Kearns MD Phone: [phone]
[2019-10-21] VITALS (74 sets, daily range): BP systolic 58–148; BP diastolic 38–88
[2019-10-21 06:13] LABS: ABSOLUTE BASOPHILS 0.1 thou/uL (0.0-0.2); ABSOLUTE EOSINOPHILS 0.3 thou/uL (0.0-0.7); ABSOLUTE LYMPHOCYTES 0.9 thou/uL (0.8-5.3); BASOPHILS 0.5 %; EOSINOPHILS 2.9 %; HEMOGLOBIN 8.5 gm/dL (12.0-15.0); LYMPHOCYTES 8.8 %; MCH 28.1 pg (26.0-34.0); MCHC 32.7 g/dL (28.0-37.0); MCV 86.1 fL (80.0-100.0); MONOCYTES 9.9 %; MPV 8.2 fl. (7.2-11.1); NUCLEATED RBCS 0 /100WBC; PLATELET COUNT* 196 thou/uL (150-400); POLYS 77.9 %; RBC 3.01 mil/uL (4.20-5.00); RDW-CV 18.2 % (10.5-14.5); WBC 10.3 thou/uL (4.0-11.0)
[2019-10-21 06:39] LABS: ALBUMIN 1.9 g/dL (3.4-5.0); CALCIUM 8.3 mg/dL (8.5-10.1); CREATININE 4.9 mg/dL (0.6-1.3); POTASSIUM 3.9 mmol/L (3.5-5.1); TOTAL BILIRUBIN 0.6 mg/dL (<0.1-1.0); TOTAL PROTEIN 5.8 g/dL (6.4-8.2)
[2019-10-22] VITALS (46 sets, daily range): BP systolic 100–155; BP diastolic 39–94
[2019-10-22 04:49] LABS: ABSOLUTE BASOPHILS 0.1 thou/uL (0.0-0.2); ABSOLUTE EOSINOPHILS 0.2 thou/uL (0.0-0.7); ABSOLUTE LYMPHOCYTES 1.1 thou/uL (0.8-5.3); ABSOLUTE MONOCYTES 0.9 thou/uL (0.0-1.2); ABSOLUTE NEUTROPHILS 7.4 thou/uL (1.6-8.1); BASOPHILS 1.3 %; EOSINOPHILS 2.5 %; HEMATOCRIT 25.7 % (37.0-47.0); HEMOGLOBIN 8.4 gm/dL (12.0-15.0); LYMPHOCYTES 10.8 %; MCH 28.2 pg (26.0-34.0); MCHC 32.6 g/dL (28.0-37.0); MCV 86.6 fL (80.0-100.0); MONOCYTES 9.6 %; MPV 8.2 fl. (7.2-11.1); NUCLEATED RBCS 0 /100WBC; PLATELET COUNT* 177 thou/uL (150-400); POLYS 75.8 %; RBC 2.97 mil/uL (4.20-5.00); WBC 9.8 thou/uL (4.0-11.0)
[2019-10-22 05:00] LABS: POTASSIUM 3.8 mmol/L (3.5-5.1)
[2019-10-22 05:03] LABS: CREATININE 3.9 mg/dL (0.6-1.3)
[2019-10-22 09:33] LABS: BE -2.1 mmol/L (-2 to +3); PO2 84.4 mmHg (75.0-100.0)
[2019-10-22 09:34] LABS: pH 7.281 (7.340-7.450)
[2019-10-22 09:35] LABS: PCO2 54.1 mmHg (35.0-45.0)
--- NOTE | 2019-10-22 15:10 | CARD ---
[address] [address] CARDIAC CATH REPORT Name: REHANAROSELIA HOANG Room: [address] IN M.R.#: [id number] Admission: 10/11/19 Attend Phys: Hunter Dahl MD Discharge: Date of : 55 Report #: [id number] THIS REPORT FOR: //name// CC: Hunter Arellano PROCEDURE: DC cardioversion. INDICATION: Persistent atrial flutter. PROCEDURE DESCRIPTION: The patient was given intravenous Versed and fentanyl to assure adequate sedation. Once the patient was adequately sedated, she was cardioverted from atrial flutter to normal sinus rhythm with a single biphasic shock of 360 joules. The patient tolerated the procedure well without complication. IMPRESSION: 1. Persistent atrial flutter. 2. Successful direct current cardioversion to normal sinus rhythm. <ELECTRONICALLY SIGNED> By: William Stone MD, FACC 10/22/19 1510 1639 0049William Stone MD, FACC /nt
[2019-10-23] VITALS (303 sets, daily range): BP systolic 97–175; BP diastolic 45–112
[2019-10-23 04:16] LABS: BE 1.8 mmol/L (-2 to +3); PO2 101.4 mmHg (75.0-100.0); pH 7.316 (7.340-7.450)
[2019-10-23 04:17] LABS: PCO2 57.5 mmHg (35.0-45.0)
[2019-10-23 04:52] LABS: HEMATOCRIT 23.7 % (37.0-47.0); HEMOGLOBIN 7.7 gm/dL (12.0-15.0); MCH 28.4 pg (26.0-34.0); MCHC 32.3 g/dL (28.0-37.0); MCV 88.1 fL (80.0-100.0); MPV 8.3 fl. (7.2-11.1); NUCLEATED RBCS 0 /100WBC; PLATELET COUNT* 193 thou/uL (150-400); RBC 2.69 mil/uL (4.20-5.00); RDW-CV 18.1 % (10.5-14.5); WBC 11.1 thou/uL (4.0-11.0)
[2019-10-23 05:03] LABS: CALCIUM 8.5 mg/dL (8.5-10.1); CREATININE 4.7 mg/dL (0.6-1.3)
[2019-10-23 07:30] LABS: ABSOLUTE EOSINOPHILS 0.6 thou/uL (0.0-0.7); ABSOLUTE LYMPHOCYTES 1.3 thou/uL (0.8-5.3); ABSOLUTE MONOCYTES 0.6 thou/uL (0.0-1.2); ABSOLUTE NEUTROPHILS 8.7 thou/uL (1.6-8.1); ANISOCYTOSIS 1+; PLATELET ESTIMATE ADEQUATE
[2019-10-23 16:52] LABS: BE -1.4 mmol/L (-2 to +3)
[2019-10-23 16:54] LABS: PCO2 54.7 mmHg (35.0-45.0); pH 7.286 (7.340-7.450)
[2019-10-24] VITALS (23 sets, daily range): BP systolic 105–156; BP diastolic 63–89
[2019-10-24 04:35] LABS: ABSOLUTE BASOPHILS 0.1 thou/uL (0.0-0.2); ABSOLUTE EOSINOPHILS 0.2 thou/uL (0.0-0.7); ABSOLUTE MONOCYTES 1.2 thou/uL (0.0-1.2); ABSOLUTE NEUTROPHILS 8.8 thou/uL (1.6-8.1); BASOPHILS 0.6 %; EOSINOPHILS 1.7 %; HEMATOCRIT 23.6 % (37.0-47.0); HEMOGLOBIN 7.6 gm/dL (12.0-15.0); LYMPHOCYTES 9.1 %; MCH 28.5 pg (26.0-34.0); MCHC 32.2 g/dL (28.0-37.0); MCV 88.5 fL (80.0-100.0); MONOCYTES 10.6 %; NUCLEATED RBCS 0 /100WBC; PLATELET COUNT* 190 thou/uL (150-400); RBC 2.67 mil/uL (4.20-5.00); RDW-CV 18.7 % (10.5-14.5); WBC 11.3 thou/uL (4.0-11.0)
[2019-10-24 04:47] LABS: CALCIUM 8.2 mg/dL (8.5-10.1); POTASSIUM 4.2 mmol/L (3.5-5.1)
[2019-10-24 04:48] LABS: CREATININE 3.6 mg/dL (0.6-1.3)
[2019-10-24 09:03] LABS: BE 2.9 mmol/L (-2 to +3); PO2 105.3 mmHg (75.0-100.0); pH 7.313 (7.340-7.450)
[2019-10-24 09:11] LABS: PCO2 60.3 mmHg (35.0-45.0)
[2019-10-25] VITALS (20 sets, daily range): BP systolic 79–156; BP diastolic 53–103
[2019-10-25 05:06] LABS: BE 2.6 mmol/L (-2 to +3); PO2 98.9 mmHg (75.0-100.0); pH 7.359 (7.340-7.450)
[2019-10-25 05:09] LABS: PCO2 51.7 mmHg (35.0-45.0)
[2019-10-25 05:40] LABS: HEMATOCRIT 24.5 % (37.0-47.0); HEMOGLOBIN 7.9 gm/dL (12.0-15.0); MCH 28.8 pg (26.0-34.0); MCHC 32.2 g/dL (28.0-37.0); MCV 89.5 fL (80.0-100.0); MPV 7.9 fl. (7.2-11.1); RBC 2.74 mil/uL (4.20-5.00); RDW-CV 19.2 % (10.5-14.5); WBC 10.3 thou/uL (4.0-11.0)
[2019-10-25 05:58] LABS: CALCIUM 8.7 mg/dL (8.5-10.1); CREATININE 4.5 mg/dL (0.6-1.3); POTASSIUM 4.1 mmol/L (3.5-5.1); TOTAL BILIRUBIN 0.6 mg/dL (<0.1-1.0); TOTAL PROTEIN 6.2 g/dL (6.4-8.2)
[2019-10-26] VITALS (15 sets, daily range): BP systolic 120–150; BP diastolic 60–93
--- NOTE | 2019-10-26 18:34 | CON ---
[address] [address] CONSULTATION Name: REHANAROSELIA HOANG Room: [address] IN M.R.#: [id number] Admission: 10/11/19 Attend Phys: Hunter Dahl MD Discharge: Date of : 55 Report #: [id number] THIS REPORT FOR: //name// CC: Hunter Arellano CONSULTING PHYSICIAN: Hunter Dahl M.D. REASON FOR CONSULTATION: Acute kidney injury. HISTORY OF PRESENT ILLNESS: A 64-year-old female with a history of chronic kidney disease, followed by Dr. James as an outpatient, who has gone for evaluation for AV access and vein mapping, was admitted to the hospital with shortness of breath. She was seen by Cardiology, found to have a small pericardial effusion, which appears to be stable. She is not having any nausea, vomiting, or diarrhea presently. She was scheduled to see Dr. Salcedo later this week for dialysis access planning. Presently, she appears to be comfortable. She has no complaints. REVIEW OF SYSTEMS: Constitutional, psych, heme, eyes, ENT, respiratory, cardiac, GI, , and endocrine all negative except as documented above. PAST MEDICAL HISTORY: Chronic kidney disease, diabetes, hypertension, COPD, and hysterectomy. SOCIAL HISTORY: No tobacco. FAMILY HISTORY: Not pertinent in 64-year-old female. PHYSICAL EXAMINATION: VITAL SIGNS: Blood pressure is 155/65, pulse 58, respirations 12, temperature 37. GENERAL: No acute distress. EYES: Open. EARS: Externally normal. NECK: Supple. CARDIOVASCULAR: Regular rate and rhythm. No pericardial friction rub heard. LUNGS: Clear to auscultation. ABDOMEN: Soft, nontender. MUSCULOSKELETAL: Nontender. NEUROLOGIC: No asterixis. LABORATORY DATA: White cell count 11.8, hemoglobin 9.5, platelets 233. Sodium 135, potassium 5.3, chloride 98, bicarbonate 26, BUN 65, creatinine 4.8, glucose 151, calcium 9.5, and phosphorus 5.8. ASSESSMENT: [place] [address] CONSULTATION Name: ROSELIA KIMBALL Room: [address] IN [facility].#: [id number] Admission: 10/11/19 Attend Phys: Hunter Dahl MD Discharge: Date of : 55 Report #: [id number] 1. Acute kidney injury. Baseline creatinine unknown. Admission creatinine was 4.7. 2. Chronic kidney disease, at least stage 4, followed by Dr. James as an outpatient. 3. Mild hyperkalemia. 4. Anemia. 5. Chronic obstructive pulmonary disease exacerbation. 6. Insulin-dependent diabetes. 7. Hypertension. 8. Mild pericardial effusion. 9. Pulmonary hypertension. PLAN: Outside records are not available at this time. We will need to obtain records from our office to review what her baseline creatinine is. She was hospitalized at [facility] in 11/2018 and did require hemodialysis on 2 occasions, but eventually regained renal function and did not require any further dialysis. Her creatinine in 05/2018 was 2.5, but it sounds like she has underlying progressive kidney disease and did have vein mapping and was scheduled to see Dr. Salcedo later this week as an outpatient. Her chest x-ray does not show any evidence of pulmonary edema. There are no acute indications for dialysis. I did discuss with Dr. Dumont the nature of the pericardial effusion, which she believes to be small with no evidence of tamponade and no evidence of uremia at this time. Given the mild hyperkalemia, she was already treated with Kayexalate; I will ensure that she is on a low potassium diet. She is also being treated with IV Lasix and she is on methylprednisolone. We will check a UA and follow closely along with you. Thank you for requesting my opinion in the care and management of this patient. <ELECTRONICALLY SIGNED> By: Lata Mott MD 10/26/19 1834 1634 2041Adelmy Mott MD /nt
[2019-10-27 04:00] VITALS: BP 124/54
[2019-10-27 05:33] LABS: ABSOLUTE BASOPHILS 0.1 thou/uL (0.0-0.2); ABSOLUTE EOSINOPHILS 0.4 thou/uL (0.0-0.7); ABSOLUTE LYMPHOCYTES 0.9 thou/uL (0.8-5.3); ABSOLUTE MONOCYTES 0.9 thou/uL (0.0-1.2); ABSOLUTE NEUTROPHILS 7.5 thou/uL (1.6-8.1); EOSINOPHILS 3.6 %; HEMATOCRIT 24.8 % (37.0-47.0); HEMOGLOBIN 7.9 gm/dL (12.0-15.0); LYMPHOCYTES 9.5 %; MCH 28.7 pg (26.0-34.0); MCHC 31.9 g/dL (28.0-37.0); MCV 89.9 fL (80.0-100.0); MONOCYTES 9.4 %; MPV 8.3 fl. (7.2-11.1); NUCLEATED RBCS 0 /100WBC; PLATELET COUNT* 168 thou/uL (150-400); POLYS 76.5 %; RBC 2.76 mil/uL (4.20-5.00); RDW-CV 19.4 % (10.5-14.5); WBC 9.8 thou/uL (4.0-11.0)
[2019-10-27 06:16] LABS: ALBUMIN 2.1 g/dL (3.4-5.0); CALCIUM 8.7 mg/dL (8.5-10.1); CREATININE 4.2 mg/dL (0.6-1.3); TOTAL BILIRUBIN 0.6 mg/dL (<0.1-1.0); TOTAL PROTEIN 6.4 g/dL (6.4-8.2)
[2019-10-27 07:30] VITALS: BP 99/53
[2019-10-27] MEDS ORDERED: HUMALOG100 UNIT/1 SUBQ (11:14)
[2019-10-27] MEDS ORDERED: IRON325 PO (11:14)
[2019-10-27] MEDS ORDERED: ASPIRIN325 PO (11:14)
[2019-10-27] MEDS ORDERED: IPRATROPIU0.2 MG/1 M INH (11:14)
[2019-10-27] MEDS ORDERED: PACERONE 200 M200 M1 PO (11:14)
[2019-10-27] MEDS ORDERED: LOPRESSOR25 PO (11:14)
[2019-10-27 12:00] VITALS: BP 116/47
[2019-10-27 16:00] VITALS: BP 124/47
[2019-10-27 20:00] VITALS: BP 116/46
[2019-10-28 04:00] VITALS: BP 100/51
[2019-10-28 07:30] VITALS: BP 109/35
[2019-10-28 12:00] VITALS: BP 128/52
--- NOTE | 2019-10-28 17:19 | CARD ---
[address] [address] CARDIAC CATH REPORT Name: REHANAROSELIA Room: [address] IN .#: [id number] Admission: 10/11/19 Attend Phys: Hunter Dahl MD Discharge: Date of : 55 Report #: [id number] THIS REPORT FOR: //name// ADDENDUM APPROVED REPORT Study performed: 10/16/2019 16:19:10 Patient Details Patient Status: In-Patient Room #: The patient is a 64 year-old female Event Personnel Humberto Dumont Harbor Boat Pilot, Caro Childs RN Cushion Worker, Dasha Palencia RTR Mohit Soliman Jessie RTR Monitor Procedures Performed Pericardiocentesis using echo guidance Indication The indication(s) include : pericardial tamponade. Risk Factors Arterial Hypertension, Renal Failure Admission/Lab Medications/Medications given during procedure Patient was given 1 mg Epinephrine along with three cycles of chest compressions for no palpable pulse. After three cycles of CPR, patient has ROSC and was able to continue with the procedure. Case Technique After explaining the risks, benefits, and alternative options, informed consent was obtained from the patient. The patient was brought emergently to the Cardiac Catheterization Laboratory in a fasting state and was prepped and draped in a sterile manner. The left parasternal area was infiltrated with 1% Lidocaine subcutaneous anesthesia. During this case, Fluoroscopy and no contrast were used for imaging. Patient consent was obtained by family member, spouse. The area under left breast was infiltrated with lidocaine and Echocardiogram guidance utilized to percutaneously drain fluid from the pericardial sack. 650cc bloody fluid obtained and send to the laboratory. The patient was intubated during the procedure. Procedure start time: 4:23 pm. Procedure end time: 5:05 pm. Conclusion 1. successful drainage of 700cc of bloody fluid [place] [address] CARDIAC CATH REPORT Name: ROSELIA KIMBALL Room: [address] IN ..#: [id number] Admission: 10/11/19 Attend Phys: Hunter Dahl MD Discharge: Date of : 55 Report #: [id number] space using echo guided pericardiocentesis. 2. the fluid was sent to the laboratory for analysis 3. echo following the procedure revealed a decrease in the amount of pericadial fluid. 4. critical care time spent with the patient was one hour and 30 minutes from 4 pm till 5:30 pm Recommendations Aggressive Medical Therapy <ELECTRONICALLY SIGNED> By: Humberto Dumont MD, [facility] 10/28/19 1718 1718 1718Davifelipe Dumont MD, FACC /INF
[2019-10-28 19:50] VITALS: BP 140/47
[2019-10-29 04:24] VITALS: BP 121/56
[2019-10-29 08:00] VITALS: BP 137/47
[2019-10-29 12:48] VITALS: BP 140/49
[2019-10-29 16:00] VITALS: BP 141/64
[2019-10-29 19:50] VITALS: BP 144/57
[2019-10-30 00:26] VITALS: BP 164/62
[2019-10-30 04:22] VITALS: BP 174/64
[2019-10-30 04:52] LABS: ABSOLUTE EOSINOPHILS 0.4 thou/uL (0.0-0.7); ABSOLUTE LYMPHOCYTES 0.9 thou/uL (0.8-5.3); ABSOLUTE MONOCYTES 0.7 thou/uL (0.0-1.2); ABSOLUTE NEUTROPHILS 4.2 thou/uL (1.6-8.1); BASOPHILS 0.5 %; EOSINOPHILS 5.8 %; HEMATOCRIT 23.4 % (37.0-47.0); HEMOGLOBIN 7.4 gm/dL (12.0-15.0); LYMPHOCYTES 14.3 %; MCH 28.8 pg (26.0-34.0); MCHC 31.7 g/dL (28.0-37.0); MCV 90.9 fL (80.0-100.0); MONOCYTES 11.7 %; NUCLEATED RBCS 0 /100WBC; PLATELET COUNT* 189 thou/uL (150-400); POLYS 67.7 %; RBC 2.58 mil/uL (4.20-5.00); WBC 6.2 thou/uL (4.0-11.0)
[2019-10-30 05:05] LABS: CALCIUM 8.5 mg/dL (8.5-10.1); CREATININE 4.9 mg/dL (0.6-1.3)
[2019-10-30 08:00] VITALS: BP 145/55
[2019-10-30] MEDS ORDERED: PACERONE 200 M200 M1 PO (09:36)
[2019-10-30] MEDS ORDERED: LOPRESSOR50 PO (09:36)
[2019-10-30] MEDS ORDERED: VAN500AD IV (15:08)
[2019-10-30 15:38] VITALS: BP 145/55
== END 2019-10-30 17:10 | DRG 853 ==
LOC: M.ERS 18:06 → M.2W 18:50 → M.TBA-ER 18:50 → M.ICU 18:50 → M.2W 10-14 14:28 → M.ICU 10-16 14:06 → M.2W 10-26 14:00
PROVIDERS: Family Medicine; Internal Medicine; Internal Medicine Cardiovascular Disease; Internal Medicine Nephrology; Internal Medicine Pulmonary Disease; ADMIT Internal Medicine
PROC: 5A2204Z Restoration of Cardiac Rhythm, Single (ICD-10-PCS; principal; 2019-10-11)
PROC: 5A09357 Assistance with Respiratory Ventilation, Less than 24 Consecutive Hours, Continuous Positive Airway Pressure (ICD-10-PCS; principal; 2019-10-11)
PROC: 5A09357 Assistance with Respiratory Ventilation, Less than 24 Consecutive Hours, Continuous Positive Airway Pressure (ICD-10-PCS; 2019-10-12)
PROC: 0JH63XZ Insertion of Tunneled Vascular Access Device into Chest Subcutaneous Tissue and Fascia, Percutaneous Approach (ICD-10-PCS; 2019-10-14)
PROC: B548ZZA Ultrasonography of Superior Vena Cava, Guidance (ICD-10-PCS; 2019-10-14)
PROC: 02HV33Z Insertion of Infusion Device into Superior Vena Cava, Percutaneous Approach (ICD-10-PCS; 2019-10-14)
PROC: B5181ZA Fluoroscopy of Superior Vena Cava using Low Osmolar Contrast, Guidance (ICD-10-PCS; 2019-10-14)
PROC: 5A1D70Z Performance of Urinary Filtration, Intermittent, Less than 6 Hours Per Day (ICD-10-PCS; 2019-10-15)
PROC: 0W9D3ZZ Drainage of Pericardial Cavity, Percutaneous Approach (ICD-10-PCS; 2019-10-16)
PROC: 5A1955Z Respiratory Ventilation, Greater than 96 Consecutive Hours (ICD-10-PCS; 2019-10-16)
PROC: 03170ZD Bypass Right Brachial Artery to Upper Arm Vein, Open Approach (ICD-10-PCS; 2019-10-16)
PROC: 0BH17EZ Insertion of Endotracheal Airway into Trachea, Via Natural or Artificial Opening (ICD-10-PCS; 2019-10-16)
PROC: B5181ZA Fluoroscopy of Superior Vena Cava using Low Osmolar Contrast, Guidance (ICD-10-PCS; 2019-10-20)
PROC: B548ZZA Ultrasonography of Superior Vena Cava, Guidance (ICD-10-PCS; 2019-10-20)
PROC: 02HV33Z Insertion of Infusion Device into Superior Vena Cava, Percutaneous Approach (ICD-10-PCS; 2019-10-20)
PROC: 5A09357 Assistance with Respiratory Ventilation, Less than 24 Consecutive Hours, Continuous Positive Airway Pressure (ICD-10-PCS; 2019-10-25)
PROC: 5A09357 Assistance with Respiratory Ventilation, Less than 24 Consecutive Hours, Continuous Positive Airway Pressure (ICD-10-PCS; 2019-10-27)
PROC: 5A09357 Assistance with Respiratory Ventilation, Less than 24 Consecutive Hours, Continuous Positive Airway Pressure (ICD-10-PCS; 2019-10-28)
PROC: 5A09357 Assistance with Respiratory Ventilation, Less than 24 Consecutive Hours, Continuous Positive Airway Pressure (ICD-10-PCS; 2019-10-29)
DX: A41.9 Sepsis, unspecified organism (principal); J96.01 Acute respiratory failure with hypoxia; R65.21 Severe sepsis with septic shock; G92 Toxic encephalopathy; J15.212 Pneumonia due to Methicillin resistant Staphylococcus aureus; N18.6 End stage renal disease; N17.9 Acute kidney failure, unspecified; J44.1 Chronic obstructive pulmonary disease with (acute) exacerbation; I31.3 Pericardial effusion (noninflammatory); E87.1 Hypo-osmolality and hyponatremia; N39.0 Urinary tract infection, site not specified; I50.30 Unspecified diastolic (congestive) heart failure; I48.92 Unspecified atrial flutter; N18.4 Chronic kidney disease, stage 4 (severe); Z68.44 Body mass index [BMI] 60.0-69.9, adult; I13.0 Hypertensive heart and chronic kidney disease with heart failure and stage 1 through stage 4 chronic kidney disease, or unspecified chronic kidney disease; J44.9 Chronic obstructive pulmonary disease, unspecified; E66.01 Morbid (severe) obesity due to excess calories; D64.9 Anemia, unspecified; I27.20 Pulmonary hypertension, unspecified; E87.5 Hyperkalemia; E03.9 Hypothyroidism, unspecified; E11.22 Type 2 diabetes mellitus with diabetic chronic kidney disease; G47.33 Obstructive sleep apnea (adult) (pediatric); Z90.710 Acquired absence of both cervix and uterus; Z88.6 Allergy status to analgesic agent; Z83.6 Family history of other diseases of the respiratory system; Z79.4 Long term (current) use of insulin

== ENCOUNTER → 2020-06-14 | Outpatient (CLI) | payer MEDICARE ==
[~2020-06-14] MED LIST changes: +ADALAT CC60 MG PO; +ASA81BEC PO; +ASPIRIN325 PO; +CALCITRIOL0.25 MCG PO; +FEBUXOSTAT40 MG PO; +HUMALOG100 UNIT/1 SUBQ; +IPRATROPIU0.2 MG/1 M INH; +IRON325 PO; +LIPITOR 20 MG T20 M1 PO; +LOPRESSOR25 PO; +LOPRESSOR50 PO; +PACERONE 200 M200 M1 PO; +VAN500AD IV
[2020-06-14 14:01] LABS: ALBUMIN 3.3 g/dL (3.4-5.0); DIRECT BILIRUBIN 0.1 mg/dL (<0.1-0.3); TOTAL BILIRUBIN 0.4 mg/dL (<0.1-1.0); TOTAL PROTEIN 8.3 g/dL (6.4-8.2)
== END ==
LOC: M.LAB 13:19
PROVIDERS: ATTEND Internal Medicine Cardiovascular Disease
DX: Z79.899 Other long term (current) drug therapy (principal); I70.0 Atherosclerosis of aorta

== ENCOUNTER → 2021-07-10 | Outpatient (CLI) | payer MEDICARE ==
[2021-07-10 10:33] LABS: ALBUMIN 3.3 g/dL (3.4-5.0); DIRECT BILIRUBIN 0.1 mg/dL (<0.1-0.3); TOTAL BILIRUBIN 0.3 mg/dL (<0.1-1.0); TOTAL PROTEIN 8.2 g/dL (6.4-8.2)
== END ==
LOC: M.LAB 10:00
PROVIDERS: ATTEND Internal Medicine Cardiovascular Disease
DX: I10 Essential (primary) hypertension (principal); I48.3 Typical atrial flutter; M47.814 Spondylosis without myelopathy or radiculopathy, thoracic region; Z79.899 Other long term (current) drug therapy

== ENCOUNTER 2021-10-22 21:30 | Emergency (ER) | payer MEDICARE ==
[~2021-10-22] VITALS: Ht 167.6 cm; Wt 142.9 kg
[2021-10-22] MEDS ORDERED: TIROSINT88 MCG PO (21:50)
[2021-10-22] MEDS ORDERED: PLAVIX 75 MG TA75 MG PO (21:51)
[2021-10-22] MEDS ORDERED: OMEPRAZOLE 20 M20 M1 PO (21:51)
[2021-10-22] MEDS ORDERED: RENAL CAPS SOFTG1 MG PO (21:51)
[2021-10-22] MEDS ORDERED: LASIX 40 MG TAB40 MG PO (21:51)
[2021-10-23] MEDS ORDERED: AUGMENTIN 500-1 EACH PO (00:08)
[2021-10-23] MEDS ORDERED: HYDROCODON-ACE1 EAC7 PO (00:08)
[2021-10-23 01:00] VITALS: BP 115/56
== END 2021-10-23 01:00 | disposition home or self-care (01) ==
LOC: M.ERS 21:30
DX: L02.31 Cutaneous abscess of buttock (principal); J44.9 Chronic obstructive pulmonary disease, unspecified; I10 Essential (primary) hypertension; E11.9 Type 2 diabetes mellitus without complications; Z90.710 Acquired absence of both cervix and uterus; Z79.899 Other long term (current) drug therapy; Z79.82 Long term (current) use of aspirin; Z88.5 Allergy status to narcotic agent